=== PATIENT | male | born 1980 | race Caucasian/White ===

== ENCOUNTER → 2021-05-26 | Outpatient (CLI) | payer OTHER ==
[2021-05-26 09:50] LABS: BASO # 0.07 K/mm3 (0.02-0.10); EOS # 0.15 K/mm3 (0.04-0.40); EOS % 1.3 % (0.0-4.0); HEMATOCRIT 45.5 % (42.0-52.0); HEMOGLOBIN 15.7 g/dL (13.5-18.0); MEAN CELL VOLUME 88 fl (78-100); MEAN CORPUSCULAR HEMOGLOBIN 30 pg (27-31); MEAN CORPUSCULAR HGB CONC 35 g/dL (33-37); MEAN PLATELET VOLUME 9.1 fl (7.4-10.4); MONO # 0.61 K/mm3 (0.20-0.80); NEU # 7.43 K/mm3 (1.40-6.50); PLATELET COUNT 319 K/mm3 (130-400); RED BLOOD COUNT 5.17 M/mm3 (4.20-5.60); RED CELL DISTRIBUTION WIDTH 11.7 % (11.5-14.5); WHITE BLOOD COUNT 11.4 K/mm3 (4.8-10.8)
[2021-05-26 09:55] LABS: ALBUMIN 4.5 g/dL (3.5-5.0)
[2021-05-26 09:56] LABS: CALCIUM 9.4 mg/dL (8.3-10.5)
[2021-05-26 09:57] LABS: TOTAL PROTEIN 8.2 g/dL (6.4-8.3)
[2021-05-26 09:59] LABS: TOTAL BILIRUBIN 0.6 mg/dL (0.2-1.2)
== END ==
LOC: LAB 09:25
PROVIDERS: Physician Assistant
DX: I10 Essential (primary) hypertension (principal)

== ENCOUNTER → 2021-11-17 | Outpatient (CLI) | payer SELFPAY ==
[2021-11-17 10:50] LABS: ALBUMIN 4.3 g/dL (3.5-5.0); POTASSIUM 3.9 mmol/L (3.5-5.1)
[2021-11-17 10:51] LABS: CALCIUM 8.7 mg/dL (8.3-10.5)
[2021-11-17 10:53] LABS: TOTAL PROTEIN 7.2 g/dL (6.4-8.3)
[2021-11-17 10:55] LABS: TOTAL BILIRUBIN 0.4 mg/dL (0.2-1.2)
== END ==
LOC: LAB 10:14
PROVIDERS: Physician Assistant
DX: I10 Essential (primary) hypertension (principal); F41.1 Generalized anxiety disorder; E78.5 Hyperlipidemia, unspecified; R74.01 Elevation of levels of liver transaminase levels

== ENCOUNTER 2022-08-15 10:55 | Emergency (ER) | payer OTHER ==
[~2022-08-15] VITALS: Ht 177.8 cm; Wt 90.9 kg
[2022-08-15] MEDS ORDERED: LISINOPRIL40 MG PO (11:10)
[2022-08-15] MEDS ORDERED: TOPROL XL100 MG PO (11:10)
[2022-08-15] MEDS ORDERED: [UNRECOGNIZED DRUG - OTHER] PO (11:11)
[2022-08-15 12:10] LABS: BASO # 0.05 K/mm3 (0.02-0.10); EOS # 0.07 K/mm3 (0.04-0.40); EOS % 1.2 % (0.0-4.0); HEMATOCRIT 42.1 % (42.0-52.0); HEMOGLOBIN 14.2 g/dL (13.5-18.0); LYMPH# 1.69 K/mm3 (1.50-4.00); MEAN CELL VOLUME 93 fl (78-100); MEAN CORPUSCULAR HEMOGLOBIN 31 pg (27-31); MEAN CORPUSCULAR HGB CONC 34 g/dL (33-37); MEAN PLATELET VOLUME 9.6 fl (7.4-10.4); MONO # 0.38 K/mm3 (0.20-0.80); NEU # 3.48 K/mm3 (1.40-6.50); PLATELET COUNT 127 K/mm3 (130-400); RED BLOOD COUNT 4.53 M/mm3 (4.20-5.60); RED CELL DISTRIBUTION WIDTH 12.1 % (11.5-14.5); WHITE BLOOD COUNT 5.7 K/mm3 (4.8-10.8)
[2022-08-15 12:20] LABS: POTASSIUM 3.8 mmol/L (3.5-5.1); SODIUM 142 mmol/L (136-145)
[2022-08-15 12:21] LABS: CALCIUM 8.8 mg/dL (8.3-10.5)
[2022-08-15 12:22] LABS: GLUCOSE 116 mg/dL (75-110); TOTAL PROTEIN 8.3 g/dL (6.4-8.3)
[2022-08-15 12:23] LABS: CARBON DIOXIDE 22 mmol/L (22-29)
[2022-08-15 12:24] LABS: TOTAL BILIRUBIN 0.8 mg/dL (0.2-1.2)
[2022-08-15 12:25] LABS: ALCOHOL IN-HOUSE 267 mg/dL (<10)
[2022-08-15 12:27] LABS: AST-SGOT 165 U/L (5-34)
[2022-08-15 12:29] LABS: ALT/SGPT 140 U/L (0-55)
[2022-08-15 12:34] LABS: ACETAMINOPHEN < 1 ug/mL
[2022-08-15 13:02] VITALS: BP 150/94
== END 2022-08-15 13:15 | disposition home or self-care (01) ==
LOC: ED 10:55
PROVIDERS: Family Medicine
DX: F10.20 Alcohol dependence, uncomplicated (principal); R74.01 Elevation of levels of liver transaminase levels; Y90.8 Blood alcohol level of 240 mg/100 ml or more
CPT/HCPCS: J3360; J7030

== ENCOUNTER 2024-01-10 14:22 | Inpatient (IN) | payer OTHER ==
[~2024-01-10] VITALS: Ht 177.8 cm; Wt 81.0 kg
[~2024-01-10 14:22] MED LIST: B-1100 M1 PO; DIAZEPAM10 MG PO; FOLIC ACID1 MG PO; LISINOPRIL40 MG PO; TOPROL XL100 MG PO; [UNRECOGNIZED DRUG - OTHER] PO
[2024-01-10] MEDS ORDERED: THIAMINE IV ONE (15:00)
[2024-01-10] MEDS ORDERED: NS IV ONE (15:00)
[2024-01-10] MEDS ORDERED: FOLIC ACID 1 MG IV ONE (15:00)
[2024-01-10 15:25] LABS: BASO # 0.05 K/mm3 (0.02-0.10); EOS % 3.4 % (0.0-4.0); HEMATOCRIT 40.6 % (42.0-52.0); HEMOGLOBIN 13.7 g/dL (13.5-18.0); LYMPH# 2.19 K/mm3 (1.50-4.00); MEAN CELL VOLUME 94 fl (78-100); MEAN CORPUSCULAR HEMOGLOBIN 32 pg (27-31); MEAN CORPUSCULAR HGB CONC 34 g/dL (33-37); MONO # 0.44 K/mm3 (0.20-0.80); NEU # 3.05 K/mm3 (1.40-6.50); PLATELET COUNT 147 K/mm3 (130-400); RED BLOOD COUNT 4.33 M/mm3 (4.20-5.60); RED CELL DISTRIBUTION WIDTH 11.9 % (11.5-14.5); WHITE BLOOD COUNT 5.9 K/mm3 (4.8-10.8)
[2024-01-10 15:28] LABS: ALBUMIN 4.7 g/dL (3.5-5.0)
[2024-01-10 15:30] LABS: CALCIUM 8.6 mg/dL (8.3-10.5)
[2024-01-10 15:31] LABS: TOTAL PROTEIN 7.4 g/dL (6.4-8.3)
[2024-01-10 15:33] LABS: TOTAL BILIRUBIN 0.4 mg/dL (0.2-1.2)
[2024-01-10 15:37] LABS: MAGNESIUM 2.11 mg/dL (1.60-2.60)
[2024-01-10 16:00] VITALS: BP 131/76
[2024-01-10 16:56] LABS: URINE APPEARANCE CLEAR (CLEAR); URINE COLOR YELLOW (YELLOW)
[2024-01-10 16:57] LABS: URINE BILIRUBIN NEGATIVE (NEGATIVE); URINE BLOOD NEGATIVE (NEGATIVE); URINE GLUCOSE NEGATIVE (NEGATIVE); URINE KETONE NEGATIVE (NEGATIVE); URINE LEUKOCYTE ESTERASE NEGATIVE (NEGATIVE); URINE NITRATE NEGATIVE (NEGATIVE); URINE PROTEIN(semi-quant) NEGATIVE (NEGATIVE)
[2024-01-10 16:58] LABS: URINE MUCUS PRESENT (NOT PRESENT)
[2024-01-10] MEDS ORDERED: Mag/Al Hydrox/Simeth Susp 30 ML CUP PO PRN (17:00)
[2024-01-10] MEDS ORDERED: LORazepam 2 MG/ML VIAL IV PRN (17:00)
[2024-01-10] MEDS ORDERED: LORazepam 0.5 MG TABLET PO PRN (17:00)
[2024-01-10] MEDS ORDERED: diazePAM 5 MG TAB PO SCH (17:00)
[2024-01-10 18:00] VITALS: BP 131/76
[2024-01-10] MEDS ORDERED: Nicotine 2 MG GUM BC PRN (18:00)
[2024-01-10] MEDS ORDERED: NS 1,000 ML IV SCH (19:15)
[2024-01-10 20:00] VITALS: BP 127/73
[2024-01-10 22:04] VITALS: BP 123/72
[2024-01-10 23:59] VITALS: BP 121/74
[2024-01-11 02:00] VITALS: BP 128/79
[2024-01-11 04:00] VITALS: BP 139/87
[2024-01-11 06:03] VITALS: BP 135/88; BP_SYST 125
[2024-01-11 07:54] VITALS: BP 129/79
[2024-01-11] MEDS ORDERED: Multivitamin TAB PO SCH (08:00)
[2024-01-11] MEDS ORDERED: Folic Acid 1 MG TAB PO SCH (09:00)
[2024-01-11] MEDS ORDERED: Thiamine 100 MG TAB PO SCH (09:00)
[2024-01-11] MEDS ORDERED: Lisinopril 20 MG TAB PO SCH (09:00)
[2024-01-11 10:13] VITALS: BP 139/88
[2024-01-11] MEDS ORDERED: VALIUM 5MG T5 MG/TAB PO (10:46)
== END 2024-01-11 11:36 | disposition home or self-care (01) | DRG 897 ==
LOC: ED 14:22 → MED/SURG 16:41
PROVIDERS: ADMIT Family Medicine
DX: F10.139 Alcohol abuse with withdrawal, unspecified (principal); R74.01 Elevation of levels of liver transaminase levels; F17.210 Nicotine dependence, cigarettes, uncomplicated; I10 Essential (primary) hypertension; R56.9 Unspecified convulsions
CPT/HCPCS: J7030

== ENCOUNTER 2024-08-23 08:00 | Emergency (ER) | payer OTHER ==
[~2024-08-23] VITALS: Ht 175.3 cm; Wt 81.0 kg
[~2024-08-23 08:00] MED LIST changes: +VALIUM 5MG T5 MG/TAB PO; +VALIUM10 M1 PO; +ZOFRAN ODT4 MG PO
[2024-08-23 08:24] LABS: BASO # 0.02 K/mm3 (0.02-0.10); EOS # 0.13 K/mm3 (0.04-0.40); EOS % 2.2 % (0.0-4.0); HEMATOCRIT 43.7 % (42.0-52.0); HEMOGLOBIN 14.5 g/dL (13.5-18.0); LYMPH# 1.93 K/mm3 (1.50-4.00); MEAN CELL VOLUME 95 fl (78-100); MEAN CORPUSCULAR HEMOGLOBIN 31 pg (27-31); MEAN CORPUSCULAR HGB CONC 33 g/dL (33-37); MEAN PLATELET VOLUME 9.2 fl (7.4-10.4); NEU # 3.53 K/mm3 (1.40-6.50); RED BLOOD COUNT 4.62 M/mm3 (4.20-5.60); RED CELL DISTRIBUTION WIDTH 12.3 % (11.5-14.5)
[2024-08-23 08:28] LABS: ALBUMIN 4.3 g/dL (3.5-5.0)
[2024-08-23 08:29] LABS: CALCIUM 8.5 mg/dL (8.3-10.5)
[2024-08-23] MEDS ORDERED: NS IV ONE (08:30)
[2024-08-23] MEDS ORDERED: THIAMINE IV ONE (08:30)
[2024-08-23] MEDS ORDERED: FOLIC ACID 1 MG IV ONE (08:30)
[2024-08-23 08:31] LABS: TOTAL PROTEIN 7.6 g/dL (6.4-8.3)
[2024-08-23 08:37] LABS: PLATELET COUNT 97 K/mm3 (130-400)
[2024-08-23] MEDS ORDERED: chlordiazePOXIDE 25 MG CAPSULE PO ONE (09:30)
[2024-08-23 10:18] LABS: URINE APPEARANCE SLIGHTLY CLOUDY (CLEAR); URINE BILIRUBIN 1+ (NEGATIVE); URINE BLOOD NEGATIVE (NEGATIVE); URINE COLOR YELLOW (YELLOW); URINE GLUCOSE NEGATIVE (NEGATIVE); URINE KETONE NEGATIVE (NEGATIVE); URINE LEUKOCYTE ESTERASE NEGATIVE (NEGATIVE); URINE NITRATE NEGATIVE (NEGATIVE); URINE PROTEIN(semi-quant) 2+ (NEGATIVE); URINE WBC 0-1 /hpf (0-3)
[2024-08-23 10:19] LABS: URINE MUCUS PRESENT (NOT PRESENT)
[2024-08-23] MEDS ORDERED: Mag/Al Hydrox/Simeth Susp 30 ML CUP PO PRN (11:00)
[2024-08-23] MEDS ORDERED: chlordiazePOXIDE 25 MG CAPSULE PO PRN (11:00)
[2024-08-23] MEDS ORDERED: cefTRIAXone 1 G in Water For Injection,Sterile 10 ML IV ONE (14:15)
[2024-08-23 16:30] VITALS: BP 148/89
== END 2024-08-23 16:30 | disposition home or self-care (01) ==
LOC: ED 08:00
PROVIDERS: Family Medicine
DX: R56.9 Unspecified convulsions (principal); B37.0 Candidal stomatitis; E86.0 Dehydration; F10.239 Alcohol dependence with withdrawal, unspecified; D69.6 Thrombocytopenia, unspecified; R74.01 Elevation of levels of liver transaminase levels; F17.210 Nicotine dependence, cigarettes, uncomplicated; Y90.6 Blood alcohol level of 120-199 mg/100 ml
CPT/HCPCS: J1808; J3411; J7030; J7120